=== PATIENT | male | born 1940 | race Hispanic/Latino ===

== ENCOUNTER 2019-10-29 10:30 | Outpatient (CLI) | payer MEDICARE ==
--- NOTE | 2019-10-29 12:26 | Magnetic Resonance Report ---
MRI LUMBAR SPINE WITHOUT CONTRAST INDICATION / CLINICAL INFORMATION: CHRONIC BACK PAIN GREATER THAN 3 MOS DURATION. TECHNIQUE: Multisequence, multiplanar images of the lumbar spine were obtained. COMPARISON: None available. FINDINGS: ALIGNMENT: Normal lumbar lordosis without significant scoliosis. VERTEBRAE:Normal marrow signal and vertebral body height for age. VISUALIZED SPINAL CORD: The conus terminates at the level of L1. The cauda equina is unremarkable. No central canal stenosis. [id number] ANALYSIS: L1-2: Mild disc desiccation and facet arthropathy. L2-3: Mild circumferential bulging disc and mild facet arthropathy. L3-4: Moderate to severe disc desiccation and moderate circumferential bulging disc. Mild facet arthr opathy. No central canal stenosis. Mild to moderate bilateral neural foraminal narrowing is estimated at 50%. The left side is slightly more affected. L4-5: Mild disc desiccation and posterior bulging disc. Mild to moderate facet arthropathy. No centra l canal narrowing. Right neural foraminal narrowing is estimated at 50%. L5-S1: Mild disc desiccation and facet arthropathy. PARASPINAL SOFT TISSUES: No significant abnormality. ADDITIONAL FINDINGS: None. IMPRESSION: Mild to moderate multilevel degenerative disc disease and facet arthropathy. L3-4 appears to be the most affected level. No evidence for acute fracture, malalignment, central canal stenosis or bone lesion. Mild to moderate neural foraminal narrowing as described. Signer Name: Ghulam Joshi Jr, MD Signed: 10/29/2019 12:21 PM Workstation Name: [id number]
== END 2019-10-29 10:31 | disposition home or self-care (01) ==
LOC: MRI 10:30
PROVIDERS: ATTEND Internal Medicine
DX: M47.816 Spondylosis without myelopathy or radiculopathy, lumbar region (principal); M48.062 Spinal stenosis, lumbar region with neurogenic claudication; M51.26 Other intervertebral disc displacement, lumbar region
CPT/HCPCS: 72148

== ENCOUNTER 2021-12-23 08:29 | Emergency (ER) | payer MEDICARE, BC ==
[2021-12-23] MEDS ORDERED: TETANUS,DIPH,PERTUSS(ACELL) VACCINE 0.5 ML SYRINGE IM ONE (08:35)
[2021-12-23] MEDS ORDERED: LIDOCAINE (1%) 10 MG/1 ML VIAL 20 ML MDV INFILTRATI ONE (08:35)
[2021-12-23] MEDS ORDERED: ACETAMINOPHEN 325 MG TAB PO ONE (08:35)
--- NOTE | 2021-12-23 08:36 | Emergency Department Report ---
ED Laceration HPI - HPI Stated Complaint: LT HAND INJURY Time Seen by Provider: 12/23/21 08:34 Occurred When: Yesterday Location: Upper Extremity Severity: moderate Tetanus Status: Not up to Date Laceration Symptoms: Yes Pain, No Foreign Body Sensation, No Numbness, No Weakness Other History: 81 yo comes to ER sp fall yesterday. He was at the [employer] and tripped on a root and fell. cutting his left hand. denies other trauma. no witness; but sound mechanical in nature. no prodrome of symptoms- no cp. no sob. 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 ED Review of Systems ROS: Stated complaint: LT HAND INJURY Other details as noted in HPI Comment: All other systems reviewed and negative ED Past Medical Hx - Past Medical History Previous Medical History?: Yes Hx Hypertension: Yes Hx Heart Attack/AMI: Yes Hx Deep Vein Thrombosis: Yes Hx GERD: Yes Hx Arthritis: Yes Additional medical history: High cholesterol - Surgical History Past Surgical History?: Yes Hx Open Heart Surgery: Yes Hx Appendectomy: Yes Additional Surgical History: Quadtriple bypass, Hernia repair - Family History Family history: no significant - Social History Smoking Status: Former Smoker Substance Use Type: None - Medications Home Medications: Home Medications Medication Instructions Recorded Confirmed Last Taken Type Arginine HCl [l-Arginine] 1,000 mg PO TID 10/15/13 10/15/13 10/14/13 22:00 History Ascorbic Acid [Vitamin C] 1 tab PO DAILY 10/15/13 10/15/13 10/14/13 09:00 History Celecoxib [celeBREX] 200 mg PO DAILY 10/15/13 10/15/13 10/14/13 09:00 History Escitalopram Oxalate [Lexapro] 20 mg PO DAILY 10/15/13 10/15/13 10/14/13 22:00 History Gabapentin 400 mg PO TID 10/15/13 10/15/13 10/14/13 22:00 History Omeprazole [PriLOSEC] 20 mg PO DAILY 10/15/13 10/15/13 10/14/13 09:00 History Simvastatin (NF) [Zocor TAB] 40 mg PO QHS 10/15/13 10/15/13 10/14/13 22:00 History Triamter/Hctz 37.5-25 mg 37.5 mg PO DAILY 10/15/13 10/15/13 10/14/13 09:00 Hi story [Maxzide-25] Vitamin E 1 cap PO DAILY 10/15/13 10/15/13 10/14/13 09:00 History traZODone [Desyrel] 50 - 100 mg PO QHS 10/15/13 10/15/13 10/14/13 22:00 History Aspirin 325 mg PO QDAY #30 tablet 10/16/13 Unknown Rx carvediloL [Coreg] 6.25 mg PO BID #60 tablet 10/16/13 Unknown Rx lisinopriL [Zestril TAB] 20 mg PO QDAY #30 tablet 10/16/13 Unknown Rx cephALEXin [Keflex] 500 mg PO Q12HR #20 cap 12/23/21 Unknown Rx Laceration Physical Exam - Exam General: Vital signs noted. No distress. Alert and acting appropriately. Laceration Location: Upper Extremity Laceration Exam: Yes Normal Distal CMS, No Foreign Body, No Exposed Tendon, Vessel, or Nerve, No Tendon Injury - Laceration /Wound Repair l hand Wound Location: upper extremity Wound Length (cm): 6 (v shaped; as in skin tear) Wound's Depth, Shape: superficial, flap, contused tissue Wound Explored: clean Irrigated w/ Saline (ccs): 100 Betadine Prep?: Yes Anesthesia: 1% Lidocaine Volume Anesthetic (ccs): 1 Wound Debrided: minimal Wound Repaired With: sutures, Steri-strips, Dermabond Suture Size/Type: 3:0, proline Number of Sutures: 4 Layer Closure?: No Sterile Dressing Applied?: Yes Progress: wound cleaned wound dressed sutures to approximate edges and then dermabond and streristrips overlying ED Medical Decision Making - Radiology Data Radiology results: report reviewed, image reviewed - Medical Decision Making Vital Signs 12/23/21 08:35 Temperature 97.7 F Pulse Rate 58 L Respiratory 16 Rate Blood Pressure 169/65 [Left] O2 Sat by Pulse 100 Oximetry wound repaired dc home with dc plan of care including keflex/wound care and follow up in 7 days. He verbalizes understanding. - Differential Diagnosis lac; ro open fx Critical care attestation.: If time is entered above; I have spent that time in minutes in the direct care of this critically ill patient, excluding procedure time. ED Disposition Clinical Impression: Laceration Fall Qualifiers: Encounter type: initial encounter Qualified Code(s): W19.XXXA - Unspecified fall, initial encounter Disposition: HOME / SELF CARE / HOMELESS Is pt being admited?: No Does the pt Need Aspirin: No Condition: Stable Instructions: Laceration Care, Adult Additional Instructions: keep wound clean and dry keep wound covered to keep it clean motrin or tylenol for pain ice the wound today to help with swelling and pain follow up with pcp early next week to be sure this is healing. Prescriptions: cephALEXin [Keflex] 500 mg PO Q12HR #20 cap Referrals: YESENIA KING MD [Staff Physician] - 3-5 Days Time of Disposition: 08:45
[2021-12-23 08:38] VITALS: BP 169/65
[2021-12-23] MEDS ORDERED: SODIUM CHLORIDE 0.9% IRR 500 ML BOTTLE IR NR (09:00)
--- NOTE | 2021-12-23 09:06 | XRay Report ---
Left hand-2 views INDICATION: pain sp fall. COMPARISON: None available. IMPRESSION: No acute osseous abnormality. Normal alignment. No significant DJD. Mild soft tissue i rregularity along the dorsum of the hand at the mid metacarpal level may represent a small laceration . There are also a couple tiny foreign bodies over the volar aspect of the distal phalanx of the ring finger measuring a couple millimeters in maximal size. Signer Name: Rojelio Luevano MD Signed: 12/23/2021 9:02 AM Workstation Name: [id number]
== END 2021-12-23 09:30 | disposition home or self-care (01) ==
LOC: ED 08:29
DX: S61.412A Laceration without foreign body of left hand, initial encounter (principal); K21.9 Gastro-esophageal reflux disease without esophagitis; M19.90 Unspecified osteoarthritis, unspecified site; I10 Essential (primary) hypertension; I25.2 Old myocardial infarction; I21.9 Acute myocardial infarction, unspecified; Z86.718 Personal history of other venous thrombosis and embolism; Z98.890 Other specified postprocedural states; Z87.891 Personal history of nicotine dependence; W22.8XXA Striking against or struck by other objects, initial encounter; Y93.89 Activity, other specified; Y92.89 Other specified places as the place of occurrence of the external cause; Y99.8 Other external cause status
CPT/HCPCS: 12002; 73120; 90471; 90715; 99283; J3490

== ENCOUNTER 2022-03-17 15:42 | Emergency (ER) | payer MEDICARE, BC ==
[2022-03-17] MEDS ORDERED: cephALEXin 500 MG CAP PO ONE (16:54)
[2022-03-17] MEDS ORDERED: SODIUM CHLORIDE 0.9% 1000 ML 1,000 ML IV ONE (16:54)
[2022-03-17] MEDS ORDERED: IBUPROFEN 600 MG TAB PO ONE (16:54)
--- NOTE | 2022-03-17 16:56 | Emergency Department Report ---
ED Animal Bite HPI - General Chief Complaint: Animal Bite Stated Complaint: DOG BITE Time Seen by Provider: 03/17/22 16:54 Source: patient Mode of arrival: Ambulatory Limitations: No Limitations - History of Present Illness Initial Comments: Patient is an 81-year-old male that comes to the emergency room after being bit by dog. 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 The dog is up-to-date on her shots. Patient is up-to-date on his tetanus. Patient is neurovascularly intact and bleeding is controlled on arrival. The bite is to his left forearm and hand. MD Complaint: animal bite -: Sudden, hour(s) Location: other Animal: dog Animal Control Notified: No Description: household pet Mechanism: bite Context: other Associated Symptoms: none Treatments Prior to Arrival: wound dressing(s) (He was feeding animals) - Related Data Patient Tetanus UTD: Yes Home Medications Medication Instructions Recorded Confirmed Last Taken Arginine HCl [l-Arginine] 1,000 mg PO TID 10/15/13 10/15/13 10/14/13 22:00 Ascorbic Acid [Vitamin C] 1 tab PO DAILY 10/15/13 10/15/13 10/14/13 09:00 Celecoxib [celeBREX] 200 mg PO DAILY 10/15/13 10/15/13 10/14/13 09:00 Escitalopram Oxalate [Lexapro] 20 mg PO DAILY 10/15/13 10/15/13 10/14/13 22:00 Gabapentin 400 mg PO TID 10/15/13 10/15/13 10/14/13 22:00 Omeprazole [PriLOSEC] 20 mg PO DAILY 10/15/13 10/15/13 10/14/13 09:00 Simvastatin (NF) [Zocor TAB] 40 mg PO QHS 10/15/13 10/15/13 10/14/13 22:00 Triamter/Hctz 37.5-25 mg 37.5 mg PO DAILY 10/15/13 10/15/13 10/14/13 09:00 [Maxzide-25] Vitamin E 1 cap PO DAILY 10/15/13 10/15/13 10/14/13 09:00 traZODone [Desyrel] 50 - 100 mg PO QHS 10/15/13 10/15/1310/14/13 22:00 Previous Rx's Medication Instructions Recorded Last Taken Type Aspirin 325 mg PO QDAY #30 tablet 10/16/13 Unknown Rx carvediloL [Coreg] 6.25 mg PO BID #60 tablet 10/16/13 Unknown Rx lisinopriL [Zestril TAB] 20 mg PO QDAY #30 tablet 10/16/13 Unknown Rx cephALEXin [Keflex] 500 mg PO Q12HR #20 cap 12/23/21 Unknown Rx Amoxicillin/K Clav Tab [Augmentin 1 tab PO Q12HR #20 tab 03/17/22 Unknown Rx 875 mg] Allergies Allergy/AdvReac Type Severity Reaction Status Date / Time No Known Allergies Allergy Verified 10/15/13 02:54 ED Review of Systems ROS: Stated complaint: DOG BITE Other details as noted in HPI Comment: All other systems reviewed and negative ED Past Medical Hx - Past Medical History Previous Medical History?: Yes Hx Hypertension: Yes Hx Heart Attack/AMI: Yes Hx Deep Vein Thrombosis: Yes Hx GERD: Yes Hx Arthritis: Yes Additional medical history: High cholesterol - Surgical History Past Surgical History?: Yes Hx Open Heart Surgery: Yes Hx Appendectomy: Yes Additional Surgical History: Quadtriple bypass, Hernia repair - Family History Family history: no significant - Social History Smoking Status: Former Smoker Substance Use Type: None - Medications Home Medications: Home Medications Medication Instructions Recorded Confirmed Last Taken Type Arginine HCl [l-Arginine] 1,000 mg PO TID 10/15/13 10/15/13 10/14/13 22:00 History Ascorbic Acid [Vitamin C] 1 tab PO DAILY 10/15/13 10/15/13 10/14/13 09:00 History Celecoxib [celeBREX] 200 mg PO DAILY 10/15/13 10/15/13 10/14/13 09:00 History Escitalopram Oxalate [Lexapro] 20 mg PO DAILY 10/15/13 10/15/13 10/14/13 22:00 History Gabapentin 400 mg PO TID 10/15/13 10/15/13 10/14/13 22:00 History Omeprazole [PriLOSEC] 20 mg PO DAILY 10/15/13 10/15/13 10/14/13 09:00 History Simvastatin (NF) [Zocor TAB] 40 mg PO QHS 10/15/13 10/15/1313 22:00 History Triamter/Hctz 37.5-25 mg 37.5 mg PO DAILY 10/15/13 10/15/13 10/14/13 09:00 History [Maxzide-25] Vitamin E 1 cap PO DAILY 10/15/13 10/15/13 10/14/13 09:00 History traZODone [Desyrel] 50 - 100 mg PO QHS 10/15/13 10/15/13 10/14/13 22:00 History Aspirin 325 mg PO QDAY #30 tablet 10/16/13 Unknown Rx carvediloL [Coreg] 6.25 mg PO BID #60 tablet 10/16/13 Unknown Rx lisinopriL [Zestril TAB] 20 mg PO QDAY #30 tablet 10/16/13 Unknown Rx cephALEXin [Keflex] 500 mg PO Q12HR #20 cap 12/23/21 Unknown Rx Amoxicillin/K Clav Tab [Augmentin 1 tab PO Q12HR #20 tab 03/17/22 Unknown Rx 875 mg] ED Physical Exam - General Limitations: No Limitations General appearance: alert, in no apparent distress - Head Head exam: Present: atraumatic, normocephalic - Eye Eye exam: Present: normal appearance - ENT ENT exam: Present: mucous membranes moist - Neck Neck exam: Present: normal inspection - Respiratory Respiratory exam: Present: normal lung sounds bilaterally. Absent: respiratory distress - Cardiovascular Cardiovascular Exam: Present: regular rate, normal rhythm. Absent: systolic murmur, diastolic murmur, rubs, gallop - GI/Abdominal GI/Abdominal exam: Present: soft, normal bowel sounds - Rectal Rectal exam: Present: deferred - Extremities Exam Extremities exam: Present: normal inspection - Back Exam Back exam: Present: normal inspection - Neurological Exam Neurological exam: Present: alert, oriented X3 - Psychiatric Psychiatric exam: Present: normal affect, normal mood - Skin Skin exam: Present: warm, dry, normal color, other (Puncture wounds to the left forearm). Absent: rash ED Course Vital Signs 03/17/22 16:09 Temperature 98.4 F Pulse Rate 65 Respiratory 18 Rate Blood Pressure 158/59 O2 Sat by Pulse 96 Oximetry Patient has various puncture caruso on his right forearm and hand. He got between his 2 dogs which are up-to-date on shots. Wound care has been provided. Have medicated him for pain. His family and himself verbalized understanding of the plan of care. Patient being discharged home with Augmentin for infection. He is to follow-up with primary care next week to make sure this is healing. Patient has full range of motion of his elbow, wrist and fingers. He is neurovascularly intact and bleeding is controlled. Patient has been instructed on wound care. X-ray has been ordered Patient being discharged home with discharge plan of care including diet, activity, medications and follow-up. He verbalizes understanding of plan of care. - Reevaluation(s) Reevaluation #1: 03/17/22 17:07 Tdap is up-to-date Wound care provided Patient medicated with Keflex and for pain He is neurovascularly intact. His dog is up-to-date on immunizations Patient being discharged home with discharge plan of care including diet, activity, medications and follow-up. He verbalizes understanding of plan of care Vital Signs 03/17/22 16:09 Temperature 98.4 F Pulse Rate 65 Respiratory 18 Rate Blood Pressure 158/59 O2 Sat by Pulse 96 Oximetry Critical care attestation.: If time is entered above; I have spent that time in minutes in the direct care of this critically ill patient, excluding procedure time. ED Disposition Clinical Impression: Puncture wound Dog bite Qualifiers: Encounter type: initial encounter Qualified Code(s): W54.0XXA - Bitten by dog, initial encounter Disposition: HOME / SELF CARE / HOMELESS Is pt being admited?: No Does the pt Need Aspirin: No Condition: Stable Instructions: Animal Bite, Adult, [id number] Additional Instructions: Keep wound clean and dry. At least twice a day you should take the bandage down pat it with soap and water, dry it and applied nonadhesive dressing. [id number] Motrin or Tylenol can be used for pain Antibiotic as ordered today Follow-up with primary care next week to make sure this is healing Prescriptions: Amoxicillin/K Clav Tab [Augmentin 875 mg] 1 tab PO Q12HR #20 tab Referrals: YESENIA KING MD [Staff Physician] - 3-5 Days Time of Disposition: 17:07
[2022-03-17] MEDS ORDERED: HYDROcodone/ACETAMINOPHEN 5-325 MG TAB PO SCH (17:00)
[2022-03-17] MEDS ORDERED: SODIUM CHLORIDE 0.9% 1000 ML 1,000 ML ONE ×2 (17:04→17:14)
--- NOTE | 2022-03-17 18:07 | XRay Report ---
LEFT FOREARM 2 VIEWS INDICATION / CLINICAL INFORMATION: pain sp dog bite. COMPARISON: None available. FINDINGS: BONES / JOINT(S): No acute fracture or subluxation. No significant arthritis. SOFT TISSUES: Small metallic foreign bodies overlie the soft tissues of the distal phalanx of the thi rd digit. ADDITIONAL FINDINGS: None. Signer Name: Stevan Centeno MD Signed: 03/17/2022 6:03 PM Workstation Name: [id number]
[2022-03-17 18:45] VITALS: BP 147/98
== END 2022-03-17 18:34 | disposition home or self-care (01) ==
LOC: ED 15:42
DX: S51.832A Puncture wound without foreign body of left forearm, initial encounter (principal); I11.9 Hypertensive heart disease without heart failure; K21.9 Gastro-esophageal reflux disease without esophagitis; M19.90 Unspecified osteoarthritis, unspecified site; I82.409 Acute embolism and thrombosis of unspecified deep veins of unspecified lower extremity; E78.00 Pure hypercholesterolemia, unspecified; Z98.890 Other specified postprocedural states; Z87.891 Personal history of nicotine dependence; W54.0XXA Bitten by dog, initial encounter; Y93.89 Activity, other specified; Y92.89 Other specified places as the place of occurrence of the external cause; Y99.8 Other external cause status
CPT/HCPCS: 73090; 96360; 99283; J7030

== ENCOUNTER 2022-05-12 12:53 | Inpatient (IN) | payer MEDICARE ==
--- NOTE | 2022-05-12 13:30 | Emergency Department Report ---
ED Shortness of Breath HPI - General Chief Complaint: Dyspnea/Respdistress Stated Complaint: RIZWAN Time Seen by Provider: 05/12/22 13:25 Source: patient, EMS Mode of arrival: Stretcher Limitations: No Limitations - History of Present Illness Initial Comments: Patient is an 81-year-old male brought in by EMS from home for evaluation of acute onset shortness of breath approximately an hour ago. He was recently admitted to the hospital 2 weeks ago for COVID pneumonia. EMS arrived to find patient in severe respiratory distress breathing roughly 40 times a minute. He denies any chest pain, fever or chills. History of CAD with remote CABG. - Related Data Home Medications Medication Instructions Recorded Confirmed Last Taken Arginine HCl [l-Arginine] 1,000 mg PO TID 10/15/13 10/15/13 10/14/13 22:00 Ascorbic Acid [Vitamin C] 1 tab PO DAILY 10/15/13 10/15/13 10/14/13 09:00 Celecoxib [celeBREX] 200 mg PO DAILY 10/15/13 10/15/13 10/14/13 09:00 Escitalopram Oxalate [Lexapro] 20 mg PO DAILY 10/15/13 10/15/13 10/14/13 22:00 Gabapentin 400 mg PO TID 10/15/13 10/15/13 10/14/13 22:00 Omeprazole [PriLOSEC] 20 mg PO DAILY 10/15/13 10/15/13 10/14/13 09:00 Simvastatin (NF) [Zocor TAB] 40 mg PO QHS 10/15/13 10/15/13 10/14/13 22:00 Triamter/Hctz 37.5-25 mg 37.5 mg PO DAILY 10/15/13 10/15/13 10/14/13 09:00 [Maxzide-25] Vitamin E 1 cap PO DAILY 10/15/13 10/15/13 10/14/13 09:00 traZODone [Desyrel] 50 - 100 mg PO QHS 10/15/13 10/15/13 10/14/13 22:00 Previous Rx's Medication Instructions Recorded Last Taken Type Aspirin 325 mg PO QDAY #30 tablet 10/16/13 Unknown Rx carvediloL [Coreg] 6.25 mg PO BID #60 tablet 12/24/13 Unknown Rx lisinopriL [Zestril TAB] 20 mg PO QDAY #30 tablet 10/16/13 Unknown Rx cephALEXin [Keflex] 500 mg PO Q12HR #20 cap 12/23/21 Unknown Rx Amoxicillin/K Clav Tab [Augmentin 1 tab PO Q12HR #20 tab 03/17/22 Unknown Rx 875 mg] Allergies Allergy/AdvReac Type Severity Reaction Status Date / Time No Known Allergies Allergy Verified 05/12/22 12:59 ED Review of Systems ROS: Stated complaint: RIZWAN Other details as noted in HPI Constitutional: denies: chills, fever Respiratory: shortness of breath. denies: cough Cardiovascular: denies: chest pain, palpitations Gastrointestinal: denies: abdominal pain, nausea, diarrhea Musculoskeletal: denies: back pain, joint swelling, arthralgia Skin: denies: rash, lesions Neurological: denies: headache, weakness, paresthesias ED Past Medical Hx - Past Medical History Hx Hypertension: Yes Hx Heart Attack/AMI: Yes Hx Deep Vein Thrombosis: Yes Hx GERD: Yes Hx Arthritis: Yes Additional medical history: High cholesterol - Surgical History Hx Open Heart Surgery: Yes Hx Appendectomy: Yes Additional Surgical History: Quadtriple bypass, Hernia repair - Social History Smoking Status: Former Smoker Substance Use Type: None - Medications Home Medications: Home Medications Medication Instructions Recorded Confirmed Last Taken Type Arginine HCl [l-Arginine] 1,000 mg PO TID 10/15/13 10/15/13 10/14/13 22:00 History Ascorbic Acid [Vitamin C] 1 tab PO DAILY 10/15/13 10/15/13 10/14/13 09:00 History Celecoxib [celeBREX] 200 mg PO DAILY 10/15/13 10/15/13 10/14/13 09:00 History Escitalopram Oxalate [Lexapro] 20 mg PO DAILY 10/15/13 10/15/13 10/14/13 22:00 History Gabapentin 400 mg PO TID 10/15/13 10/15/13 10/14/13 22:00 History Omeprazole [PriLOSEC] 20 mg PO DAILY 10/15/13 10/15/13 10/14/13 09:00 History Simvastatin (NF) [Zocor TAB] 40 mg PO QHS 10/15/13 10/15/13 10/14/13 22:00 History Triamter/Hctz 37.5-25 mg 37.5 mg PO DAILY 10/15/13 10/15/13 10/14/13 09:00 History [Maxzide-25] Vitamin E 1 cap PO DAILY 10/15/13 10/15/13 10/14/13 09:00 History traZODone [Desyrel] 50 - 100 mg PO QHS 10/15/13 10/15/13 10/14/13 22:00 History Aspirin 325 mg PO QDAY #30 tablet 10/16/13 Unknown Rx carvediloL [Coreg] 6.25 mg PO BID #60 tablet 10/16/13 Unknown Rx lisinopriL [Zestril TAB] 20 mg PO QDAY #30 tablet 10/16/13 Unknown Rx cephALEXin [Keflex] 500 mg PO Q12HR #20 cap 12/23/21 Unknown Rx Amoxicillin/K Clav Tab [Augmentin 1 tab PO Q12HR #20 tab 03/17/22 Unknown Rx 875 mg] ED Physical Exam - General Limitations: No Limitations General appearance: alert, in distress - Head Head exam: Present: atraumatic, normocephalic - Respiratory Respiratory exam: Present: normal lung sounds bilaterally, respiratory distress, accessory muscle use, other (Tachypnea) - Cardiovascular Cardiovascular Exam: Present: regular rate, normal rhythm, normal heart sounds - GI/Abdominal GI/Abdominal exam: Present: soft. Absent: distended, tenderness - Rectal Rectal exam: Present: deferred - Extremities Exam Extremities exam: Present: normal inspection. Absent: pedal edema, joint swe lling - Neurological Exam Neurological exam: Present: alert, oriented X3 - Psychiatric Psychiatric exam: Present: normal affect, normal mood - Skin Skin exam: Present: warm, dry, intact, normal color ED Course Vital Signs 05/12/22 05/12/22 05/12/22 13:27 13:31 13:45 Temperature Pulse Rate 60 57 L Respiratory 36 H 18 Rate Blood Pressure 138/57 138/57 O2 Sat by Pulse 100 100 100 Oximetry 05/12/22 05/12/22 05/12/22 14:01 14:15 14:31 Temperature Pulse Rate 53 L 54 L 53 L Respiratory 12 15 15 Rate Blood Pressure 145/62 145/62 132/62 O2 Sat by Pulse 100 100 100 Oximetry 05/12/22 05/12/2205/12/22 14:45 15:01 15:15 Temperature Pulse Rate 54 L 54 L 53 L Respiratory 16 18 19 Rate Blood Pressure 132/62 141/64 141/64 O2 Sat by Pulse 100 100 100 Oximetry 05/12/22 05/12/22 05/12/22 15:31 15:45 15:55 Temperature 97.6 F Pulse Rate 53 L 54 L Respiratory 19 16 Rate Blood Pressure 138/58 138/58 O2 Sat by Pulse 100 100 Oximetry 05/12/22 05/12/22 05/12/22 16:01 16:15 16:31 Temperature Pulse Rate 54 L 54 L 56 L Respiratory 16 14 14 Rate Blood Pressure 142/57 142/57 141/60 O2 Sat by Pulse 100 100 100 Oximetry 05/12/22 05/12/22 05/12/22 16:45 17:01 17:15 Temperature Pulse Rate 64 66 65 Respiratory 17 31 H 31 H Rate Blood Pressure 141/60 141/60 141/60 O2 Sat by Pulse 100 100 Oximetry 05/12/22 05/12/22 17:31 17:35 Temperature Pulse Rate 65 Respiratory 34 H 28 H Rate Blood Pressure 141/60 O2 Sat by Pulse 100 97 Oximetry ED Medical Decision Making - Lab Data Result diagrams: 05/12/22 15:01 05/12/22 15:01 - Medical Decision Making Chest x-ray shows mild basilar parenchymal opacity in the left lung that could represent atelectasis or pneumonia. WBC count is normal. Patient is afebrile. D-dimer is elevated. Subsequent CTA chest negative for PE. Patient eventually placed on BiPAP due to increased difficulty breathing with apparent fatigue. Will admit to hospitalist. Critical care attestation.: If time is entered above; I have spent that time in minutes in the direct care of this critically ill patient, excluding procedure time. ED Disposition Clinical Impression: Acute respiratory distress Disposition: 09 ADMITTED INPATIENT Is pt being admited?: Yes Condition: Stable
--- NOTE | 2022-05-12 14:09 | XRay Report ---
CHEST 1 VIEW 05/12/2022 1:01 PM INDICATION / CLINICAL INFORMATION: Dyspnea. COMPARISON: 10/15/2013 FINDINGS: SUPPORT DEVICES: None. HEART / MEDIASTINUM: Changes of prior median sternotomy are noted. LUNGS / PLEURA: There are low lung volumes bilaterally. There is mild basilar parenchymal opacity on the left. There is a stable calcified granuloma in the right lung base. The upper lung zones are sindhu r. No pneumothorax. ADDITIONAL FINDINGS: No significant additional findings. IMPRESSION: 1. There is mild basilar parenchymal opacity in the left could represent atelectasis or pneumonia. Pe rsistent density in this location and the study from 2012 and is possible this represents chronic int erstitial disease or scar. Signer Name: Lei Camacho MD Signed: 05/12/2022 2:04 PM Workstation Name: [email or web address]
[2022-05-12 14:20] LABS: ABG Base Excess -1.8 mmol/L (-2.0-3.0); ABG HCO3 19.8 mmol/L (20.0-26.0); ABG Methemoglobin 0.6 % (0.0-1.5); ABG Oxygen Saturation 99.5 % (95.0-99.0); ABG PCO2 24.9 mm Hg; ABG PH 7.518 pH Units (7.350-7.450)
[2022-05-12 14:30] LABS: ABG PO2 292.6 mm Hg (80.0-90.0)
[2022-05-12 15:30] LABS: Basophils % (Auto) 0.5 % (0.0-1.8); Eosinophils % (Auto) 0.9 % (0.0-4.3); Hematocrit 34.7 % (35.5-45.6); Hemoglobin 11.5 gm/dl (11.8-15.2); Lymphocytes # (Auto) 1.1 K/mm3 (1.2-5.4); Lymphocytes % (Auto) 19.4 % (13.4-35.0); Mean Corpuscular HGB Conc 33 % (32-34); Mean Corpuscular Volume 93 fl (84-94); Monocytes # (Auto) 0.6 K/mm3 (0.0-0.8); Monocytes % (Auto) 10.2 % (0.0-7.3); Platelet Count 147 K/mm3 (140-440); Red Blood Count 3.72 M/mm3 (3.65-5.03); Red Cell Distribution Width 14.3 % (13.2-15.2)
[2022-05-12 15:52] LABS: Alanine Aminotransferase 12 units/L (7-56); Albumin 3.8 g/dL (3.9-5); BUN/Creatinine Ratio 14; Blood Urea Nitrogen 14 mg/dL (9-20); Calcium 8.4 mg/dL (8.4-10.2); Hemolysis Index 6
--- NOTE | 2022-05-12 18:17 | Cat Scan Report ---
CTA CHEST WITH CONTRAST INDICATION / CLINICAL INFORMATION: Dyspnea. TECHNIQUE: Axial CT images were obtained through the chest after injection of 80 cc of Omnipaque 350 IV contrast. 3 plane MIP and/or 3D reconstructions were produced. All CT scans at this location are p erformed using CT dose reduction for ALARA by means of automated exposure control. COMPARISON: None available. FINDINGS: PULMONARY ARTERIES: No pulmonary emboli. THORACIC AORTA: Mild atherosclerotic calcification without acute abnormality. HEART: No significant abnormality. CORONARY ARTERY CALCIFICATION: Severe. MEDIASTINUM / LOIS: No significant abnormality. PLEURA: No pleural effusion. No pneumothorax. LUNGS: No acute air space or interstitial disease. There are 2 calcified granulomas in the right lowe r lobe. There is mild atelectasis or scar in the left lung base ADDITIONAL FINDINGS: None. UPPER ABDOMEN: No acute findings. SKELETAL STRUCTURES: No acute abnormality IMPRESSION: 1. No CT evidence for pulmonary embolism. 2. No acute findings. Signer Name: Lei Camacho MD Signed: 05/12/2022 6:13 PM Workstation Name: [id number]
--- NOTE | 2022-05-12 18:38 | History and Physical Report ---
History of Present Illness Chief complaint: He is having problems breathing History of present illness: 81 YO Male with Vascular Dementia, Cerebral Atherosclerosis, GERD, HLD, HTN, ND, OA, DVT not on therapeutic anticoagulation, CAD S/P CABG, Coronavirus Infection 2 weeks ago presents to ED for evaluation. Patient has diminished cognition and is in respiratory distress and is unable to provide history. Patient history provided by EMS staff, ED staff, as well as patient's son who is at bedside during exam and interview. As per son the patient experienced shortness of breath today. EMS was notified and upon arrival the patient was found to be in distress and subsequent transported to [facility] for further care and evaluation of the aforementioned symptoms. The patient was seen and evaluated in the emergency department. All lab and imaging studies reviewed. Patient found to have a pulse oximetry of 88% on room air which is consistent with acute hypoxemic respiratory failure. Patient was found to be using accessory muscles to breathe and was unable to speak in complete sentences. Patient placed on supplemental oxygen via nasal cannula without improvement in symptoms. Patient subsequently placed on noninvasive positive pressure ventilation with improvement in symptoms. Chest x-ray revealed pneumonia. Patient admitted to IMCU and initiated on pneumonia protocol as well as coronavirus protocol. No reports of fever, chills, chest pain, palpitation, productive cough, skin rash, recent contact trauma. No prior admission for review. All medication listed at time of admission as reconciled. Advanced care planning conducted in ED. Past History Past Medical History: acute ND, arthritis, DVT, GERD, hypertension, hyperlipidemia Past Surgical History: appendectomy, CABG Social history: . denies: smoking, alcohol abuse, prescription drug abuse Family history: hypertension Medications and Allergies Allergies Allergy/AdvReac Type Severity Reaction Status Date / Time No Known Allergies Allergy Verified 05/12/22 12:59 Home Medications Medication Instructions Recorded Confirmed Last Taken Type Arginine HCl [l-Arginine] 1,000 mg PO TID 10/15/13 10/15/13 10/14/13 22:00 History Ascorbic Acid [Vitamin C] 1 tab PO DAILY 10/15/13 10/15/13 10/14/13 09:00 History Celecoxib [celeBREX] 200 mg PO DAILY 10/15/13 10/15/13 10/14/13 09:00 History Escitalopram Oxalate [Lexapro] 20 mg PO DAILY 10/15/13 10/15/1313 22:00 History Gabapentin 400 mg PO TID 10/15/13 10/15/13 10/14/13 22:00 History Omeprazole [PriLOSEC] 20 mg PO DAILY 10/15/13 10/15/13 10/14/13 09:00 History Simvastatin (NF) [Zocor TAB] 40 mg PO QHS 10/15/13 10/15/13 10/14/13 22:00 History Triamter/Hctz 37.5-25 mg 37.5 mg PO DAILY 10/15/13 10/15/13 10/14/13 09:00 History [Maxzide-25] Vitamin E 1 cap PO DAILY 10/15/13 10/15/13 10/14/13 09:00 History traZODone [Desyrel] 50 - 100 mg PO QHS 10/15/13 10/15/13 10/14/13 22:00 History Aspirin 325 mg PO QDAY #30 tablet 10/16/13 Unknown Rx carvediloL [Coreg] 6.25 mg PO BID #60 tablet 10/16/13 Unknown Rx lisinopriL [Zestril TAB] 20 mg PO QDAY #30 tablet 10/16/13 Unknown Rx cephALEXin [Keflex] 500 mg PO Q12HR #20 cap 12/23/21 Unknown Rx Amoxicillin/K Clav Tab [Augmentin 1 tab PO Q12HR #20 tab 03/17/22 Unknown Rx 875 mg] Review of Systems ROS unobtainable: due to mental status Exam - Constitutional Vitals: Temp Pulse Resp BP Pulse Ox 97.6 F 65 28 H 141/60 97 05/12/22 15:55 05/12/22 17:31 05/12/22 17:35 05/12/22 17:31 05/12/22 17:35 General appearance: Present: mild distress - EENT Eyes: Present: PERRL ENT: clear oral mucosa, hearing decreased - Neck Neck: Present: supple, normal ROM - Respiratory Respiratory effort: labored Respiratory: bilateral: diminished, rhonchi - Cardiovascular Heart Sounds: Present: S1 & S2. Absent: rub, click - Extremities Extremities: pulses symmetrical, No edema Peripheral Pulses: within normal limits - Abdominal General gastrointestinal: Present: soft, non-tender, non-distended, normal bowel sounds Male genitourinary: Present: normal - Integumentary Integumentary: Present: clear, warm, dry - Musculoskeletal Musculoskeletal: generalized weakness - Psychiatric Psychiatric: no appropriate mood/affect, no intact judgment & insight, no memory intact - Neurologic Neurologic: CNII-XII intact, no focal deficits, moves all extremities, no gait normal HEART Score - HEART Score Troponin: Troponin T < 0.010 ng/mL (0.00-0.029) 05/12/22 15:01 Results - Labs CBC & Chem 7: 05/12/22 15:01 05/12/22 15:01 Labs: Abnormal lab results 05/12/22 05/12/22 05/12/22 Range/Units 14:00 15:01 15:01 Hgb 11.5 L (11.8-15.2) gm/dl Hct 34.7 L (35.5-45.6) % [place] % (Auto) 10.2 H (0.0-7.3) % Lymph # (Auto) 1.1 L (1.2-5.4) K/mm3 D-Dimer (0-234) ng/mlDDU ABG pH 7.518 H (7.350-7.450) pH Units ABG pO2 292.6 H (80.0-90.0) mm Hg ABG HCO3 19.8 L (20.0-26.0) mmol/L ABG O2 Saturation 99.5 H (95.0-99.0) % ABG Hemoglobin 11.9 L (14.0-18.0) gm/dl Glucose 109 H (75-100) mg/dL Total Protein 5.8 L (6.3-8.2) g/dL Albumin 3.8 L (3.9-5) g/dL 05/12/22 Range/Units 15:01 Hgb (11.8-15.2) gm/dl Hct (35.5-45.6) % [place] % (Auto) (0.0-7.3) % Lymph # (Auto) (1.2-5.4) K/mm3 D-Dimer 549.41 H (0-234) ng/mlDDU ABG pH (7.350-7.450) pH Units ABG pO2 (80.0-90.0) mm Hg ABG HCO3 (20.0-26.0) mmol/L ABG O2 Saturation (95.0-99.0) % ABG Hemoglobin (14.0-18.0) gm/dl Glucose (75-100) mg/dL Total Protein (6.3-8.2) g/dL Albumin (3.9-5) g/dL Assessment and Plan - Patient Problems (1) Acute hypoxemic respiratory failure Current Visit: Yes Status: Acute Plan to address problem: Chest x-ray, supplemental oxygen, pulse oximetry, nebulizer therapy, D-dimer, CT angio chest, pulmonary toilet, IV steroid therapy, arterial blood gas. Pulmonary toilet. Noninvasive positive pressure ventilation. (2) Pneumonia Current Visit: Yes Status: Acute Plan to address problem: Pneumonia protocol: Chest x-ray, CBC, supplemental oxygen, pulse oximetry, nebulizer therapy (3) COVID-19 long hauler Current Visit: Yes Status: Acute Plan to address problem: Coronavirus protocol, vitamin C therapy, vitamin D therapy, zinc therapy, steroid therapy, prophylactic anticoagulation. (4) Vascular dementia Current Visit: Yes Status: Acute Qualifiers: Dementia behavioral disturbance: without behavioral disturbance Qualified Code(s): F01.50 - Vascular dementia without behavioral disturbance Plan to address problem: Verbal prompting, verbal redirection, benzodiazepine therapy as clinically indicated. (5) Cerebral atherosclerosis Current Visit: Yes Status: Acute Plan to address problem: Risk factor reduction, antiplatelet therapy, supportive care. (6) Hypertension Current Visit: Yes Status: Acute Qualifiers: Hypertension type: primary hypertension Qualified Code(s): I10 - Essential (primary) hypertension Plan to address problem: Monitor blood pressure every shift, continue medical management. (7) Hyperlipidemia Current Visit: Yes Status: Acute Qualifiers: Hyperlipidemia type: mixed hyperlipidemia Qualified Code(s): E78.2 - Mixed hyperlipidemia Plan to address problem: Low-cholesterol diet, supportive care. (8) GERD (gastroesophageal reflux disease) Current Visit: Yes Status: Acute Qualifiers: Esophagitis presence: without esophagitis Qualified Code(s): K21.9 - Gastro-esophageal reflux disease without esophagitis Plan to address problem: PPI therapy, supportive care. (9) Osteoarthritis Current Visit: Yes Status: Acute Plan to address problem: NSAID therapy as clinically indicated, pain control (10) DVT prophylaxis Current Visit: Yes Status: Acute Plan to address problem: SCD to bilateral lower extremities while in bed, prophylactic anticoagulation. (11) Advance care planning Current Visit: Yes Status: Acute Plan to address problem: Disease education done, care plan discussed, diagnoses discussed, prognosis discussed, patient is full code. Patient and son acknowledged understanding and agreed with care plan, +30 minutes. (12) Preventative health care Current Visit: Yes Status: Acute Plan to address problem: Patient and son counseled regarding home safety, risk factor reduction, outpatient follow-up with primary care physician for all age and risk factor appropriate screening tests. +30 minutes.
[2022-05-12] MEDS ORDERED: methylPREDNISolone Sod Succinate 125 MG/2 ML INJ IM ONE (19:42)
[2022-05-12] MEDS ORDERED: oxyCODONE /ACETAMINOPHEN 5-325MG TAB PO PRN (19:45)
[2022-05-12] MEDS ORDERED: MORPHINE 4 MG/1 ML INJ IV PRN (19:45)
[2022-05-12] MEDS ORDERED: ONDANSETRON 4 MG/2 ML INJ IV PRN (19:45)
[2022-05-12] MEDS ORDERED: ALBUTEROL 2.5 MG/3 ML NEBU IH PRN (19:45)
[2022-05-12] MEDS ORDERED: ACETAMINOPHEN 325 MG TAB PO PRN (19:45)
--- NOTE | 2022-05-12 19:45 | History and Physical Report ---
History of Present Illness History of present illness: 81 YO Male with Vascular Dementia, Cerebral Atherosclerosis, GERD, HLD, HTN, [place], OA, DVT not on therapeutic anticoagulation, CAD S/P CABG, Coronavirus Infection 2 weeks ago presents to ED for evaluation. Past History Past Surgical History: appendectomy, CABG Social history: . denies: smoking, alcohol abuse, prescription drug abuse Family history: hypertension Medications and Allergies Allergies Allergy/AdvReac Type Severity Reaction Status Date / Time No Known Allergies Allergy Verified 05/12/22 12:59 Home Medications Medication Instructions Recorded Confirmed Last Taken Type Arginine HCl [l-Arginine] 1,000 mg PO TID 10/15/13 10/15/13 10/14/13 22:00 History Ascorbic Acid [Vitamin C] 1 tab PO DAILY 10/15/13 10/15/13 10/14/13 09:00 History Celecoxib [celeBREX] 200 mg PO DAILY 10/15/13 10/15/13 10/14/13 09:00 History Escitalopram Oxalate [Lexapro] 20 mg PO DAILY 10/15/13 10/15/13 10/14/13 22:00 History Gabapentin 400 mg PO TID 10/15/13 10/15/13 10/14/13 22:00 History Omeprazole [PriLOSEC] 20 mg PO DAILY 10/15/13 10/15/13 10/14/13 09:00 History Simvastatin (NF) [Zocor TAB] 40 mg PO QHS 10/15/13 10/15/13 10/14/13 22:00 History Triamter/Hctz 37.5-25 mg 37.5 mg PO DAILY 10/15/13 10/15/13 10/14/13 09:00 History [Maxzide-25] Vitamin E 1 cap PO DAILY 10/15/13 10/15/13 10/14/13 09:00 History traZODone [Desyrel] 50 - 100 mg PO QHS 10/15/13 10/15/13 10/14/13 22:00 History Aspirin 325 mg PO QDAY #30 tablet 10/16/13 Unknown Rx carvediloL [Coreg] 6.25 mg PO BID #60 tablet 10/16/13 Unknown Rx lisinopriL [Zestril TAB] 20 mg PO QDAY #30 tablet 10/16/13 Unknown Rx cephALEXin [Keflex] 500 mg PO Q12HR #20 cap 12/23/21 Unknown Rx Amoxicillin/K Clav Tab [Augmentin 1 tab PO Q12HR #20 tab 03/17/22 Unknown Rx 875 mg] Exam - Constitutional Vitals: Temp Pulse Resp BP Pulse Ox 97.6 F 65 28 H 141/60 97 05/12/22 15:55 05/12/22 17:31 05/12/22 17:35 05/12/22 17:31 05/12/22 17:35 HEART Score - HEART Score Troponin: Troponin T < 0.010 ng/mL (0.00-0.029) 05/12/22 15:01 Results - Labs CBC & Chem 7: 05/12/22 15:01 05/12/22 15:01 Labs: Abnormal lab results 05/12/22 05/12/22 05/12/22 Range/Units 14:00 15:01 15:01 Hgb 11.5 L (11.8-15.2) gm/dl Hct 34.7 L (35.5-45.6) % [place] % (Auto) 10.2 H (0.0-7.3) % Lymph # (Auto) 1.1 L (1.2-5.4) K/mm3 D-Dimer (0-234) ng/mlDDU ABG pH 7.518 H (7.350-7.450) pH Units ABG pO2 292.6 H (80.0-90.0) mm Hg ABG HCO3 19.8 L (20.0-26.0) mmol/L ABG O2 Saturation 99.5 H (95.0-99.0) % ABG Hemoglobin 11.9 L (14.0-18.0) gm/dl Glucose 109 H (75-100) mg/dL Total Protein 5.8 L (6.3-8.2) g/dL Albumin 3.8 L (3.9-5) g/dL 05/12/22 Range/Units 15:01 Hgb (11.8-15.2) gm/dl Hct (35.5-45.6) % [place] % (Auto) (0.0-7.3) % Lymph # (Auto) (1.2-5.4) K/mm3 D-Dimer 549.41 H (0-234) ng/mlDDU ABG pH (7.350-7.450) pH Units ABG pO2 (80.0-90.0) mm Hg ABG HCO3 (20.0-26.0) mmol/L ABG O2 Saturation (95.0-99.0) % ABG Hemoglobin (14.0-18.0) gm/dl Glucose (75-100) mg/dL Total Protein (6.3-8.2) g/dL Albumin (3.9-5) g/dL
[2022-05-12] MEDS ORDERED: LORazepam 2 MG/ML VIAL IV PRN (19:52)
[2022-05-12] MEDS ORDERED: ARGININE HCL 1000 MG PO SCH (20:00)
[2022-05-12] MEDS ORDERED: SODIUM CHLORIDE 0.45% 1000 ML 1,000 ML IV SCH (20:00)
[2022-05-12] MEDS: cefTRIAXone/NS 2 GM/100 ML 2 GM/100 ML BAG IV SCH (21:53)
[2022-05-12] MEDS: PRAVASTATIN 80 MG TAB PO SCH (21:53)
[2022-05-12] MEDS: AZITHROMYCIN 250 MG TAB PO SCH (21:54)
[2022-05-12] MEDS: GABAPENTIN 400 MG CAP PO SCH (21:54)
[2022-05-12] MEDS ORDERED: NON-FORMULARY EACH (Simvastatin 40 MG Tablet) PO SCH (22:00)
[2022-05-13] MEDS: methylPREDNISolone Sod Succinate 40 MG/1 ML INJ IV SCH ×3 (00:52→16:25)
[2022-05-13] MEDS: ASCORBIC ACID 500 MG TAB PO SCH ×3 (00:52→21:37)
[2022-05-13] MEDS: ZINC SULFATE 220 MG CAP PO SCH ×3 (00:52→21:37)
[2022-05-13] MEDS: HEPARIN 5,000 UNIT/1 ML VIAL SUB-Q SCH ×3 (00:52→21:41)
[2022-05-13 05:04] LABS: Basophils % (Auto) 0.4 % (0.0-1.8); Hematocrit 38.5 % (35.5-45.6); Hemoglobin 12.9 gm/dl (11.8-15.2); Lymphocytes # (Auto) 0.5 K/mm3 (1.2-5.4); Lymphocytes % (Auto) 12.6 % (13.4-35.0); Mean Corpuscular HGB Conc 33 % (32-34); Mean Corpuscular Volume 92 fl (84-94); Monocytes # (Auto) 0.1 K/mm3 (0.0-0.8); Monocytes % (Auto) 2.5 % (0.0-7.3); Platelet Count 164 K/mm3 (140-440); Red Blood Count 4.18 M/mm3 (3.65-5.03); Red Cell Distribution Width 14.7 % (13.2-15.2)
[2022-05-13 05:21] LABS: BUN/Creatinine Ratio 14; Blood Urea Nitrogen 15 mg/dL (9-20); Hemolysis Index 9
[2022-05-13] MEDS ORDERED: DEXTROSE 50% IN WATER (25GM) 50 ML SYRINGE IV PRN (08:48)
[2022-05-13] MEDS ORDERED: NON-FORMULARY EACH (Omeprazole [Prilosec] 20 MG Capsule.Dr) PO SCH (10:00)
[2022-05-13] MEDS ORDERED: VITAMIN E 400 UNIT PO SCH (10:00)
[2022-05-13] MEDS ORDERED: ASCORBIC ACID 1000 MG PO SCH (10:00)
[2022-05-13] MEDS ORDERED: NON-FORMULARY EACH (Escitalopram Oxalate [Lexapro] 20 MG Tablet) PO SCH (10:00)
[2022-05-13] MEDS: TRIAMTER/HCTZ 37.5-25 MG TAB PO SCH (10:04)
[2022-05-13] MEDS: PANTOPRAZOLE 20 MG TAB PO SCH (10:04)
[2022-05-13] MEDS: ASPIRIN 325 MG TAB PO SCH (10:04)
[2022-05-13] MEDS: LISINOPRIL 20 MG TAB PO SCH (10:04)
[2022-05-13] MEDS: AZITHROMYCIN 250 MG TAB PO SCH (10:04)
[2022-05-13] MEDS: CELECOXIB 200 MG CAP PO SCH (10:04)
[2022-05-13] MEDS: CHOLECALCIFEROL (VIT D3) 1000 UNIT (25 mcg) TAB PO SCH (10:05)
[2022-05-13] MEDS: GABAPENTIN 400 MG CAP PO SCH ×3 (10:05→19:54)
[2022-05-13] MEDS: ESCITALOPRAM 10 MG TAB PO SCH (10:58)
--- NOTE | 2022-05-13 11:16 | Progress Note ---
<TWILA WILSON - Last Filed: 05/13/22 14:59> Assessment and Plan Assessment and plan: This is a 81-year-old male with known past medical history of vascular dementia, cerebral atherosclerosis, GERD, HLD, HTN, OA, MA, CAD s/p CABG, DVT not on therapeutic anticoagulation, and recent Coronavirus Infection 2 weeks ago admit tricia for acute hypoxic respiratory failure requiring continuous Bipap Hospital Course to Date: 05/13: Respirtaory status imporved, stable on 2L NC this am. No respiratory dis tress noted. COVID PCR came back negative, imagings reviewed possible pneumonia vs chronic interstitial disease. Continue current IV Abx and IV steroids for now, Pulmonary consulted. Hyperglycemic this am, patient on IV steroids, low SSI initiated. Patient is stable for transfer to the floor. Assessment and Plan #Acute Hypoxic Respiratory Failure #Possible LLL Pneumonia vs Chronic Interstitial Disease #Recent COVID-19 Infection - Presented in respiratory distress and hypoxia required continuous Bipap - Imagings reviewed possible pneumonia vs chronic interstitial disease, see report for detail - COVID PCR negative, CRP and procal pending - Respiratory status improved, off Bipap. Stable on 2L NC today - Continue current IV abx and IV abx for now - Pulmonary consulted - Continue O2 supplementation and wean as tolerated - Continue SPO2 monitoring for SPO2 goal above 92% #Hypertension #Hyperlipidemia - BP stable, continue medical management. - Resume home antihypertensive and statin - Continue blood pressure monitor per protocol - Maintain SBP greater than 160 #Vascular Dementia - Currently fully AAO - Continue supportive measures - Verbal prompting, verbal redirection - Avoid benzodiazepine to reduce the possibility of delirium - PRN Analgesia for pain control - Maintenance of sleep-wake cycle #GERD (Gastroesophageal Reflux Disease) - continue medical management. - PPI- Protonix #Osteoarthritis - continue medical management. - Home meds resumed #Hyperglycemia - Per patient no previous history of diabetes - Now on IV steroids - BG check and SSI initiated - While critically ill target blood glucose of 140-180 #GI/DVT Prophylaxis - PPI- Pepcid - Heparin subQ - SCD to bilateral lower extremities while in bed #Advance Care Planning - Disease education data, care plan, diagnoses, and prognosis were discussed with patient and his son at the bedside. They acknowledged understanding and agreement with care plan. Patient is full code. #Preventative Health Care - Patient and son counseled regarding home safety, risk factor reduction, outpatient follow-up with primary care physician for all age and risk factor appropriate screening tests. The high probability of a clinically significant, sudden or life threatening deterioration of the [multiple] system(s) required my full and direct attention, intervention and personal management. The aggregate critical care time was [60] minutes. This time is in addition to time spent performing reported procedures but includes the following: [x] Data Review and interpretation [x] Patient assessment and monitoring of vital signs [x] Documentation [x] Medication orders and management Disposition Plan: IMCU Total Time Spent with Patient (Minutes): 60 History Interval history: Patient seen and examined at the bedside. Fully AAO, on 2L NC, denied any pain nor any discomfort. No sighs of any respiratory distress noted. VSS Hospitalist Physical - Constitutional Vitals: Temp Pulse Resp BP Pulse Ox 97.5 F L 81 21 128/60 97 05/13/22 07:12 05/13/22 11:00 05/13/22 11:00 05/13/22 11:00 05/13/22 11:00 General appearance: Present: no acute distress - EENT Eyes: Present: PERRL, EOM intact ENT: hearing decreased, other ([place]) - Neck Neck: Present: normal ROM - Respiratory Respiratory effort: normal Respiratory: bilateral: diminished - Cardiovascular Rhythm: regular Heart Sounds: Present: S1 & S2 - Extremities Extremities: no ischemia, pulses intact, pulses symmetrical Peripheral Pulses: within normal limits - Abdominal General gastrointestinal: soft, non-distended, normal bowel sounds - Integumentary Integumentary: Present: warm, dry - Psychiatric Psychiatric: appropriate mood/affect, cooperative - Neurologic Neurologic: CNII-XII intact, moves all extremities - Allied Health Allied health notes reviewed: nursing HEART Score - HEART Score Troponin: Troponin T < 0.010 ng/mL (0.00-0.029) 05/12/22 20:17 Results - Labs CBC & Chem 7: 05/13/22 04:36 05/13/22 04:36 Labs: Laboratory Last Values WBC 4.1 K/mm3 (4.5-11.0) L 05/13/22 04:36 RBC 4.18 M/mm3 (3.65-5.03) 05/13/22 04:36 Hgb 12.9 gm/dl (11.8-15.2) 05/13/22 04:36 Hct 38.5 % (35.5-45.6) 05/13/22 04:36 MCV 92 fl (84-94) 05/13/22 04:36 MCH 31 pg (28-32) 05/13/22 04:36 MCHC 33 % (32-34) 05/13/22 04:36 RDW 14.7 % (13.2-15.2) 05/13/22 04:36 Plt Count 164 K/mm3 (140-440) 05/13/22 04:36 Lymph % (Auto) 12.6 % (13.4-35.0) L 05/13/22 04:36 [place] % (Auto) 2.5 % (0.0-7.3) 05/13/22 04:36 Eos % (Auto) 0.0 % (0.0-4.3) 05/13/22 04:36 Baso % (Auto) 0.4 % (0.0-1.8) 05/13/22 04:36 Lymph # (Auto) 0.5 K/mm3 (1.2-5.4) L 05/13/22 04:36 [place] # (Auto) 0.1 K/mm3 (0.0-0.8) 05/13/22 04:36 Eos # (Auto) 0.0 K/mm3 (0.0-0.4) 05/13/22 04:36 Baso # (Auto) 0.0 K/mm3 (0.0-0.1) 05/13/22 04:36 Seg Neutrophils % 84.5 % (40.0-70.0) H 05/13/22 04:36 Seg Neutrophils # 3.4 K/mm3 (1.8-7.7) 05/13/22 04:36 D-Dimer 549.41 ng/mlDDU (0-234) H 05/12/22 15:01 ABG pH 7.518 pH Units (7.350-7.450) H 05/12/22 14:00 ABG pCO2 24.9 mm Hg 05/12/22 14:00 ABG pO2 292.6 mm Hg (80.0-90.0) H 05/12/22 14:00 ABG HCO3 19.8 mmol/L (20.0-26.0) L 05/12/22 14:00 ABG O2 Saturation 99.5 % (95.0-99.0) H 05/12/22 14:00 ABG O2 Content 17.1 (0.0-44) 05/12/22 14:00 ABG Base Excess -1.8 mmol/L (-2.0-3.0) 05/12/22 14:00 ABG Hemoglobin 11.9 gm/dl (14.0-18.0) L 05/12/22 14:00 ABG Carboxyhemoglobin 0.8 % (0.0-5.0) 05/12/22 14:00 ABG Methemoglobin 0.6 % (0.0-1.5) 05/12/22 14:00 Oxyhemoglobin 98.1 % (95.0-99.0) 05/12/22 14:00 FiO2 100 % 05/12/22 14:00 Sodium 140 mmol/L (137-145) 05/13/22 04:36 Potassium 3.9 mmol/L (3.6-5.0) 05/13/22 04:36 Chloride 101.2 mmol/L (98-107) 05/13/22 04:36 Carbon Dioxide 22 mmol/L (22-30) 05/13/22 04:36 Anion Gap 21 mmol/L 05/13/22 04:36 BUN 15 mg/dL (9-20) 05/13/22 04:36 Creatinine 1.1 mg/dL (0.8-1.3) 05/13/22 04:36 Estimated GFR > 60 ml/min 05/13/22 04:36 BUN/Creatinine Ratio 14 % 05/13/22 04:36 Glucose 199 mg/dL (75-100) H 05/13/22 04:36 Calcium 9.0 mg/dL (8.4-10.2) 05/13/22 04:36 Total Bilirubin 0.40 mg/dL (0.1-1.2) 05/12/22 15:01 AST 14 units/L (5-40) 05/12/22 15:01 ALT 12 units/L (7-56) 05/12/22 15:01 Alkaline Phosphatase 66 units/L (35-129) 05/12/22 15:01 Troponin T < 0.010 ng/mL (0.00-0.029) 05/12/22 20:17 NT-Pro-B Natriuret Pep 227.8 pg/mL (0-900) 05/12/22 15:01 Total Protein 5.8 g/dL (6.3-8.2) L 05/12/22 15:01 Albumin 3.8 g/dL (3.9-5) L 05/12/22 15:01 Albumin/Globulin Ratio 1.9 % 05/12/22 15:01 SARS-CoV-2 (PCR) Negative (Negative) 05/13/22 09:50 Reddy/IV: Voiding Method Urinal Active Medications - Current Medications Current Medications: Generic Name Dose Route Start Last Admin Trade Name Freq PRN Reason Stop Dose Admin Acetaminophen 650 mg 05/12/22 19:45 Acetaminophen 325 Mg Tab PO Q4H PRN Pain MILD(1-3)/Fever >100.5/GOMEZ Albuterol 2.5 mg 05/12/22 19:45 Albuterol 2.5 Mg/3 Ml Nebu IH Q4HRT PRN Shortness Of Breath Ascorbic Acid 500 mg 05/12/22 22:00 05/13/22 10:05 Ascorbic Acid 500 Mg Tab PO 500 mg BID CECY Administration Aspirin 325 mg 05/13/22 10:00 05/13/22 10:04 Aspirin 325 Mg Tab PO 325 mg QDAY CECY Administration Azithromycin 500 mg 05/12/22 21:00 05/13/22 10:04 Azithromycin 250 Mg Tab PO 500 mg QDAY CECY Administration Protocol Celecoxib 200 mg 05/13/22 10:00 05/13/22 10:04 Celecoxib 200 Mg Cap PO 200 mg DAILY CECY Administration Cholecalciferol 1,000 unit 05/13/22 10:00 05/13/22 10:05 Cholecalciferol (Vit D3) 1000 Unit (25 Mcg) Tab PO 1,000 unit QDAY CECY Administration Dextrose 50 ml 05/13/22 08:48 Dextrose 50% In Water (25gm) 50 Ml Syringe IV Q30MIN PRN Hypoglycemia Protocol Escitalopram Oxalate 20 mg 05/13/22 10:00 05/13/22 10:58 Escitalopram 10 Mg Tab PO 20 mg DAILY CCEY Administration Gabapentin 400 mg 05/12/22 20:00 05/13/22 10:05 Gabapentin 400 Mg Cap PO 400 mg TID CECY Administration Heparin Sodium (Porcine) 5,000 unit 05/12/22 22:00 05/13/22 10:05 Heparin 5,000 Unit/1 Ml Vial SUB-Q 5,000 unit Q12HR CECY Administration Ceftriaxone Sodium 2 gm in 100 mls @ 200 mls/hr 05/12/22 20:00 05/12/22 21:53 Rocephin/Ns 2 Gm/100 Ml IV 200 mls/hr Q24H CECY Administration Protocol Insulin Human Lispro 0 unit 05/13/22 11:30 Insulin Lispro 100 Unit/Ml SUB-Q ACHS [facility] Protocol Lisinopril 20 mg 05/13/22 10:00 05/13/22 10:04 Lisinopril 20 Mg Tab PO 20 mg QDAY CECY Administration Lorazepam 0.5 mg 05/12/22 19:52 Lorazepam 2 Mg/Ml Vial IV Q6H PRN Agitation Methylprednisolone Sodium Succinate 40 mg 05/13/22 00:00 05/13/22 10:05 Methylprednisolone Sod Succinate 40 Mg/1 Ml Inj IV 40 mg Q8H CECY Administration Miscellaneous Medication 1,000 mg 05/12/22 20:00 Arginine Hcl [L-Arginine] PO TID [facility] Morphine Sulfate 2 mg 05/12/22 19:45 Morphine 4 Mg/1 Ml Inj IV Q12H PRN Pain , Severe (7-10) Ondansetron HCl 4 mg 05/12/22 19:45 Ondansetron 4 Mg/2 Ml Inj IV Q8H PRN Nausea And Vomiting Oxycodone/Acetaminophen 1 tab 05/12/22 19:45 Oxycodone /Acetaminophen 5-325mg Tab PO Q6H PRN Pain, Moderate (4-6) Pantoprazole Sodium 20 mg 05/13/22 10:00 05/13/22 10:04 Pantoprazole 20 Mg Tab PO 20 mg QDAY CECY Administration Pravastatin Sodium 80 mg 05/12/22 22:00 05/12/22 21:53 Pravastatin 80 Mg Tab PO 80 mg QHS CECY Administration Sodium Chloride 10 ml 05/12/22 22:00 05/13/22 10:05 Sodium Chloride 0.9% 10 Ml Flush Syringe IV 10 ml BID CECY Administration Sodium Chloride 10 ml 05/12/22 19:45 Sodium Chloride 0.9% 10 Ml Flush Syringe IV PRN PRN LINE FLUSH Triamterene/Hydrochlorothiazide 1 each 05/13/22 10:00 05/13/22 10:04 Triamter/Hctz 37.5-25 Mg Tab PO 1 each DAILY CECY Administration Vitamin E 400 unit 05/13/22 10:00 Tocopherol 200 Unit Cap PO QDAY CECY Zinc Sulfate 220 mg 05/12/22 22:00 05/13/22 10:05 Zinc Sulfate 220 Mg Cap PO 220 mg BID CECY Administration <MONTEZ WONG - Last Filed: 05/14/22 07:39> Assessment and Plan Assessment and plan: I saw and evaluated the patient. I agree with the findings and the plan of care as documented in the Nurse Practitioner's~note, with the following corrections and additions. Hospitalist Physical - Constitutional Vitals: Temp Pulse Resp BP Pulse Ox 97.5 F L 60 18 114/45 96 05/14/22 05:14 05/14/22 06:00 05/14/22 05:14 05/14/22 05:14 05/14/22 05:14 HEART Score - HEART Score Troponin: Troponin T < 0.010 ng/mL (0.00-0.029) 05/12/22 20:17 Results - Labs CBC & Chem 7: 05/14/22 05:13 05/14/22 05:13 Labs: Laboratory Last Values WBC 10.1 K/mm3 (4.5-11.0) 05/14/22 05:13 RBC 3.75 M/mm3 (3.65-5.03) 05/14/22 05:13 Hgb 11.8 gm/dl (11.8-15.2) 05/14/22 05:13 Hct 34.4 % (35.5-45.6) L 05/14/22 05:13 MCV 92 fl (84-94) 05/14/22 05:13 MCH 31 pg (28-32) 05/14/22 05:13 MCHC 34 % (32-34) 05/14/22 05:13 RDW 14.3 % (13.2-15.2) 05/14/22 05:13 Plt Count 144 K/mm3 (140-440) 05/14/22 05:13 Lymph % (Auto) 12.6 % (13.4-35.0) L 05/13/22 04:36 [place] % (Auto) 2.5 % (0.0-7.3) 05/13/22 04:36 Eos % (Auto) 0.0 % (0.0-4.3) 05/13/22 04:36 Baso % (Auto) 0.4 % (0.0-1.8) 05/13/22 04:36 Lymph # (Auto) 0.5 K/mm3 (1.2-5.4) L 05/13/22 04:36 [place] # (Auto) 0.1 K/mm3 (0.0-0.8) 05/13/22 04:36 Eos # (Auto) 0.0 K/mm3 (0.0-0.4) 05/13/22 04:36 Baso # (Auto) 0.0 K/mm3 (0.0-0.1) 05/13/22 04:36 Seg Neutrophils % 84.5 % (40.0-70.0) H 05/13/22 04:36 Seg Neutrophils # 3.4 K/mm3 (1.8-7.7) 05/13/22 04:36 D-Dimer 736.62 ng/mlDDU (0-234) H 05/14/22 05:13 ABG pH 7.518 pH Units (7.350-7.450) H 05/12/22 14:00 ABG pCO2 24.9 mm Hg 05/12/22 14:00 ABG pO2 292.6 mm Hg (80.0-90.0) H 05/12/22 14:00 ABG HCO3 19.8 mmol/L (20.0-26.0) L 05/12/22 14:00 ABG O2 Saturation 99.5 % (95.0-99.0) H 05/12/22 14:00 ABG O2 Content 17.1 (0.0-44) 05/12/22 14:00 ABG Base Excess -1.8 mmol/L (-2.0-3.0) 05/12/22 14:00 ABG Hemoglobin 11.9 gm/dl (14.0-18.0) L 05/12/22 14:00 ABG Carboxyhemoglobin 0.8 % (0.0-5.0) 05/12/22 14:00 ABG Methemoglobin 0.6 % (0.0-1.5) 05/12/22 14:00 Oxyhemoglobin 98.1 % (95.0-99.0) 05/12/22 14:00 FiO2 100 % 05/12/22 14:00 Sodium 140 mmol/L (137-145) 05/14/22 05:13 Potassium 4.4 mmol/L (3.6-5.0) 05/14/22 05:13 Chloride 103.3 mmol/L (98-107) 05/14/22 05:13 Carbon Dioxide 23 mmol/L (22-30) 05/14/22 05:13 Anion Gap 18 mmol/L 05/14/22 05:13 BUN 29 mg/dL (9-20) H 05/14/22 05:13 Creatinine 1.0 mg/dL (0.8-1.3) 05/14/22 05:13 Estimated GFR > 60 ml/min 05/14/22 05:13 BUN/Creatinine Ratio 29 % 05/14/22 05:13 Glucose 186 mg/dL (75-100) H 05/14/22 05:13 POC Glucose 238 mg/dL (70-105) H 05/13/22 21:46 Calcium 8.6 mg/dL (8.4-10.2) 05/14/22 05:13 Ferritin 46.4 ng/mL (30.0-300.0) 05/14/22 05:13 Total Bilirubin 0.40 mg/dL (0.1-1.2) 05/12/22 15:01 AST 14 units/L (5-40) 05/12/22 15:01 ALT 12 units/L (7-56) 05/12/22 15:01 Alkaline Phosphatase 66 units/L (35-129) 05/12/22 15:01 Lactate Dehydrogenase 130 units/L (91-180) 05/14/22 05:13 Troponin T < 0.010 ng/mL (0.00-0.029) 05/12/22 20:17 C-Reactive Protein < 0.30 mg/dL (0.00-1.30) 05/14/22 05:13 NT-Pro-B Natriuret Pep 227.8 pg/mL (0-900) 05/12/22 15:01 Total Protein 5.8 g/dL (6.3-8.2) L 05/12/22 15:01 Albumin 3.8 g/dL (3.9-5) L 05/12/22 15:01 Albumin/Globulin Ratio 1.9 % 05/12/22 15:01 SARS-CoV-2 (PCR) Negative (Negative) 05/13/22 09:50 Reddy/IV: Voiding Method Urinal Active Medications - Current Medications Current Medications: Generic Name Dose Route Start Last Admin Trade Name Freq PRN Reason Stop Dose Admin Acetaminophen 650 mg 05/12/22 19:45 Acetaminophen 325 Mg Tab PO Q4H PRN Pain MILD(1-3)/Fever >100.5/GOMEZ Albuterol 2.5 mg 05/12/22 19:45 Albuterol 2.5 Mg/3 Ml Nebu IH Q4HRT PRN Shortness Of Breath Ascorbic Acid 500 mg 05/12/22 22:00 05/13/22 21:37 Ascorbic Acid 500 Mg Tab PO 500 mg BID CECY Administration Aspirin 325 mg 05/13/22 10:00 05/13/22 10:04 Aspirin 325 Mg Tab PO 325 mg QDAY CECY Administration Azithromycin 500 mg 05/12/22 21:00 05/13/22 10:04 Azithromycin 250 Mg Tab PO 500 mg QDAY CECY Administration Protocol Celecoxib 200 mg 05/13/22 10:00 05/13/22 10:04 Celecoxib 200 Mg Cap PO 200 mg DAILY CECY Administration Cholecalciferol 1,000 unit 05/13/22 10:00 05/13/22 10:05 Cholecalciferol (Vit D3) 1000 Unit (25 Mcg) Tab PO 1,000 unit QDAY CECY Administration Dextrose 50 ml 05/13/22 08:48 Dextrose 50% In Water (25gm) 50 Ml Syringe IV Q30MIN PRN Hypoglycemia Protocol Escitalopram Oxalate 20 mg 05/13/22 10:00 05/13/22 10:58 Escitalopram 10 Mg Tab PO 20 mg DAILY CECY Administration Gabapentin 400 mg 05/12/22 20:00 05/13/22 19:54 Gabapentin 400 Mg Cap PO 400 mg TID CECY Administration Heparin Sodium (Porcine) 5,000 unit 05/12/22 22:00 05/13/22 21:41 Heparin 5,000 Unit/1 Ml Vial SUB-Q 5,000 unit Q12HR CECY Administration Ceftriaxone Sodium 2 gm in 100 mls @ 200 mls/hr 05/12/22 20:00 05/13/22 19:54 Rocephin/Ns 2 Gm/100 Ml IV 200 mls/hr Q24H CECY Administration Protocol Insulin Glargine 20 units 05/13/22 22:00 05/13/22 22:00 Insulin Glargine 100 Units/Ml SUB-Q 20 units QHS CECY Administration Insulin Human Lispro 0 unit 05/13/22 11:30 05/13/22 22:00 Insulin Lispro 100 Unit/Ml SUB-Q 4 unit ACHS CECY Administration Protocol Lisinopril 20 mg 05/13/22 10:00 05/13/22 10:04 Lisinopril 20 Mg Tab PO 20 mg QDAY CECY Administration Methylprednisolone Sodium Succinate 40 mg 05/13/22 00:00 05/14/22 00:41 Methylprednisolone Sod Succinate 40 Mg/1 Ml Inj IV 40 mg Q8H CECY Administration Miscellaneous Medication 1,000 mg 05/12/22 20:00 Arginine Hcl [L-Arginine] PO TID CECY Ondansetron HCl 4 mg 05/12/22 19:45 Ondansetron 4 Mg/2 Ml Inj IV Q8H PRN Nausea And Vomiting Oxycodone/Acetaminophen 1 tab 05/12/22 19:45 05/13/22 21:52 Oxycodone /Acetaminophen 5-325mg Tab PO 1 tab Q6H PRN Administration Pain, Moderate (4-6) Pantoprazole Sodium 20 mg 05/13/22 10:00 05/13/22 10:04 Pantoprazole 20 Mg Tab PO 20 mg QDAY CECY Administration Pravastatin Sodium 80 mg 05/12/22 22:00 05/13/22 21:40 Pravastatin 80 Mg Tab PO 80 mg QHS CECY Administration Sodium Chloride 10 ml 05/12/22 22:00 05/13/22 22:46 Sodium Chloride 0.9% 10 Ml Flush Syringe IV 10 ml BID CECY Administration Sodium Chloride 10 ml 05/12/22 19:45 Sodium Chloride 0.9% 10 Ml Flush Syringe IV PRN PRN LINE FLUSH Triamterene/Hydrochlorothiazide 1 each 05/13/22 10:00 05/13/22 10:04 Triamter/Hctz 37.5-25 Mg Tab PO 1 each DAILY CECY Administration Vitamin E 400 unit 05/13/22 10:00 05/13/22 11:32 Tocopherol 200 Unit Cap PO 400 unit QDAY CECY Administration Zinc Sulfate 220 mg 05/12/22 22:00 05/13/22 21:37 Zinc Sulfate 220 Mg Cap PO 220 mg BID CECY Administration
[2022-05-13] MEDS: TOCOPHEROL 200 UNIT CAP PO SCH (11:32)
[2022-05-13] MEDS: INSULIN LISPRO 100 UNIT/ML SUB-Q SCH ×3 (11:41→22:00)
[2022-05-13] MEDS: cefTRIAXone/NS 2 GM/100 ML 2 GM/100 ML BAG IV SCH (19:54)
[2022-05-13] MEDS: PRAVASTATIN 80 MG TAB PO SCH (21:40)
[2022-05-13] MEDS ORDERED: INSULIN GLARGINE 100 UNITS/ML SUB-Q SCH (22:00)
--- NOTE | 2022-05-14 00:22 | Consultation ---
History of Present Illness Consult date: 05/13/22 Requesting physician: JUDAH COATES Reason for consult: dyspnea History of present illness: 81 yo WM s/p recent Covid-19 infection presented with acute onset dyspnea, without wheezing, fevers, chills, chest pain, cough, sputum, hemoptysis. Stabilized on BIPAP initially, now back on RA with resolution of SOB and no othe r symptoms. Patient expresses desire to go home. Past History Past Medical History: acute IA, arthritis, DVT, GERD, hypertension, hyperlipidemia Past Surgical History: appendectomy, CABG Social history: . denies: smoking, alcohol abuse, prescription drug abuse Family history: hypertension Medications and Allergies Allergies Allergy/AdvReac Type Severity Reaction Status Date / Time No Known Allergies Allergy Verified 05/12/22 12:59 Home Medications Medication Instructions Recorded Confirmed Last Taken Type Arginine HCl [l-Arginine] 1,000 mg PO TID 10/15/13 10/15/13 10/14/13 22:00 H istory Ascorbic Acid [Vitamin C] 1 tab PO DAILY 10/15/13 10/15/13 10/14/13 09:00 History Celecoxib [celeBREX] 200 mg PO DAILY 10/15/13 10/15/13 10/14/13 09:00 History Escitalopram Oxalate [Lexapro] 20 mg PO DAILY 10/15/13 10/15/13 10/14/13 22:00 History Gabapentin 400 mg PO TID 10/15/13 10/15/13 10/14/13 22:00 History Omeprazole [PriLOSEC] 20 mg PO DAILY 10/15/13 10/15/13 10/14/13 09:00 History Simvastatin (NF) [Zocor TAB] 40 mg PO QHS 10/15/13 10/15/13 10/14/13 22:00 History Triamter/Hctz 37.5-25 mg 37.5 mg PO DAILY 10/15/13 10/15/13 10/14/13 09:00 History [Maxzide-25] Vitamin E 1 cap PO DAILY 10/15/13 10/15/13 10/14/13 09:00 History traZODone [Desyrel] 50 - 100 mg PO QHS 10/15/13 10/15/13 10/14/13 22:00 History Aspirin 325 mg PO QDAY #30 tablet 10/16/13 Unknown Rx carvediloL [Coreg] 6.25 mg PO BID #60 tablet 10/16/13 Unknown Rx lisinopriL [Zestril TAB] 20 mg PO QDAY #30 tablet 10/16/13 Unknown Rx Amoxicillin/K Clav Tab [Augmentin 1 tab PO Q12HR #20 tab 05/14/22 Unknown Rx 875MG TAB] Zinc Sulfate 220 mg PO BID #60 capsule 05/14/22 Unknown Rx metFORMIN [Glucophage] 500 mg PO BID #60 tab 05/14/22 Unknown Rx predniSONE [Deltasone] 20 mg PO QDAY #5 tab 05/14/22 Unknown Rx Active Meds: Active Medications Acetaminophen (Acetaminophen 325 Mg Tab) 650 mg PO Q4H PRN PRN Reason: Pain MILD(1-3)/Fever >100.5/GOMEZ Albuterol (Albuterol 2.5 Mg/3 Ml Nebu) 2.5 mg IH Q4HRT PRN PRN Reason: Shortness Of Breath Ascorbic Acid (Ascorbic Acid 500 Mg Tab) 500 mg PO BID [facility] Last Admin: 05/13/22 21:37 Dose: 500 mg Aspirin (Aspirin 325 Mg Tab) 325 mg PO QDAY [facility] Last Admin: 05/13/22 10:04 Dose: 325 mg Azithromycin (Azithromycin 250 Mg Tab) 500 mg PO QDAY [facility]; Protocol Last Admin: 05/13/22 10:04 Dose: 500 mg Celecoxib (Celecoxib 200 Mg Cap) 200 mg PO DAILY [facility] Last Admin: 05/13/22 10:04 Dose: 200 mg Cholecalciferol (Cholecalciferol (Vit D3) 1000 Unit (25 Mcg) Tab) 1,000 unit PO QDAY [facility] Last Admin: 05/13/22 10:05 Dose: 1,000 unit Dextrose (Dextrose 50% In Water (25gm) 50 Ml Syringe) 50 ml IV Q30MIN PRN; Protocol PRN Reason: Hypoglycemia Escitalopram Oxalate (Escitalopram 10 Mg Tab) 20 mg PO DAILY [facility] Last Admin: 05/13/22 10:58 Dose: 20 mg Gabapentin (Gabapentin 400 Mg Cap) 400 mg PO TID [facility] Last Admin: 05/13/22 19:54 Dose: 400 mg Heparin Sodium (Porcine) (Heparin 5,000 Unit/1 Ml Vial) 5,000 unit SUB-Q Q12HR [facility] Last Admin: 05/13/22 21:41 Dose: 5,000 unit Ceftriaxone Sodium (Rocephin/Ns 2 Gm/100 Ml) 2 gm in 100 mls @ 200 mls/hr IV Q24H [facility]; Protocol Last Admin: 05/13/22 19:54 Dose: 200 mls/hr Insulin Glargine (Insulin Glargine 100 Units/Ml) 20 units SUB-Q QHS [facility] Insulin Human Lispro (Insulin Lispro 100 Unit/Ml) 0 unit SUB-Q ACHS [facility]; Protocol Last Admin: 05/13/22 22:00 Dose: 4 unit Lisinopril (Lisinopril 20 Mg Tab) 20 mg PO QDAY [facility] Last Admin: 05/13/22 10:04 Dose: 20 mg Lorazepam (Lorazepam 2 Mg/Ml Vial) 0.5 mg IV Q6H PRN PRN Reason: Agitation Methylprednisolone Sodium Succinate (Methylprednisolone Sod Succinate 40 Mg/1 Ml Inj) 40 mg IV Q8H [facility] Last Admin: 05/13/22 16:25 Dose: 40 mg Miscellaneous Medication (Arginine Hcl [L-Arginine]) 1,000 mg PO TID [facility] Morphine Sulfate (Morphine 4 Mg/1 Ml Inj) 2 mg IV Q12H PRN PRN Reason: Pain , Severe (7-10) Ondansetron HCl (Ondansetron 4 Mg/2 Ml Inj) 4 mg IV Q8H PRN PRN Reason: Nausea And Vomiting Oxycodone/Acetaminophen (Oxycodone /Acetaminophen 5-325mg Tab) 1 tab PO Q6H PRN PRN Reason: Pain, Moderate (4-6) Last Admin: 05/13/22 21:52 Dose: 1 tab Pantoprazole Sodium (Pantoprazole 20 Mg Tab) 20 mg PO QDAY [facility] Last Admin: 05/13/22 10:04 Dose: 20 mg Pravastatin Sodium (Pravastatin 80 Mg Tab) 80 mg PO QHS [facility] Last Admin: 05/13/22 21:40 Dose: 80 mg Sodium Chloride (Sodium Chloride 0.9% 10 Ml Flush Syringe) 10 ml IV BID [facility] Last Admin: 05/13/22 10:05 Dose: 10 ml Sodium Chloride (Sodium Chloride 0.9% 10 Ml Flush Syringe) 10 ml IV PRN PRN PRN Reason: LINE FLUSH Triamterene/Hydrochlorothiazide (Triamter/Hctz 37.5-25 Mg Tab) 1 each PO DAILY [facility] Last Admin: 05/13/22 10:04 Dose: 1 each Vitamin E (Tocopherol 200 Unit Cap) 400 unit PO QDAY [facility] Last Admin: 05/13/22 11:32 Dose: 400 unit Zinc Sulfate (Zinc Sulfate 220 Mg Cap) 220 mg PO BID [facility] Last Admin: 05/13/22 21:37 Dose: 220 mg Review of Systems All systems: negative Physical Examination Vital signs: Vital Signs Pulse Ox 100 05/12/22 13:27 General appearance: no acute distress, alert Eyes: non-icteric ENT: oropharynx moist Neck: supple Effort: normal Ascultation: Bilateral: clear Cardiovascular: regular rate and rhythm (no mrg) Gastrointestinal: normoactive bowel sounds, soft, non-tender, non-distended Integumentary: normal Extremities: no cyanosis, no edema, pink and warm Musculoskeletal: no deformities normal mental status, non-focal exam, pupils equal and round, CN II-XII normal mood appropriate, affect normal Results - Laboratory Findings CBC and BMP: 05/14/22 05:13 05/14/22 05:13 ABG ABG pH 7.518 pH Units (7.350-7.450) H 05/12/22 14:00 ABG pCO2 24.9 mm Hg 05/12/22 14:00 ABG pO2 292.6 mm Hg (80.0-90.0) H 05/12/22 14:00 ABG O2 Saturation 99.5 % (95.0-99.0) H 05/12/22 14:00 PT/INR, D-dimer D-Dimer 549.41 ng/mlDDU (0-234) H 05/12/22 15:01 Abnormal lab findings: Abnormal Labs 05/12/22 05/12/22 05/12/22 14:00 15:01 15:01 WBC Hgb 11.5 L Hct 34.7 L Lymph % (Auto) [place] % (Auto) 10.2 H Lymph # (Auto) 1.1 L Seg Neutrophils % D-Dimer ABG pH 7.518 H ABG pO2 292.6 H ABG HCO3 19.8 L ABG O2 Saturation 99.5 H ABG Hemoglobin 11.9 L Glucose 109 H POC Glucose Total Protein 5.8 L Albumin 3.8 L 05/12/22 05/13/22 05/13/22 15:01 04:36 04:36 WBC 4.1 L Hgb Hct Lymph % (Auto) 12.6 L [place] % (Auto) Lymph # (Auto) 0.5 L Seg Neutrophils % 84.5 H D-Dimer 549.41 H ABG pH ABG pO2 ABG HCO3 ABG O2 Saturation ABG Hemoglobin Glucose 199 H POC Glucose Total Protein Albumin 05/13/22 05/13/22 05/13/22 11:33 16:35 21:46 WBC Hgb Hct Lymph % (Auto) [place] % (Auto) Lymph # (Auto) Seg Neutrophils % D-Dimer ABG pH ABG pO2 ABG HCO3 ABG O2 Saturation ABG Hemoglobin Glucose POC Glucose 297 H 309 H 238 H Total Protein Albumin - Diagnostic Findings Chest x-ray: report reviewed, image reviewed CT scan - chest: report reviewed, image reviewed Assessment and Plan Imp: 1. Covid-19 infection 2. Centrilobular emphysema on CT chest -> likely COPD exac. 3. Acute respiratory failure, hypoxia 4. CAD s/p CABG Rec: 1. Would complete a course of empiric ABX and PO steroids at d/c, and have him f/u in our office for PFTs given presence of emphysema on CT chest 2. Can go home in AM pulm-[place] Plan of care reviewed w/ patient, he understands/agrees Thanks kindly for the consult.
[2022-05-14] MEDS: methylPREDNISolone Sod Succinate 40 MG/1 ML INJ IV SCH ×2 (00:41→09:44)
[2022-05-14 05:45] LABS: Hematocrit 34.4 % (35.5-45.6); Hemoglobin 11.8 gm/dl (11.8-15.2); Mean Corpuscular HGB Conc 34 % (32-34); Mean Corpuscular Volume 92 fl (84-94); Platelet Count 144 K/mm3 (140-440); Red Blood Count 3.75 M/mm3 (3.65-5.03); Red Cell Distribution Width 14.3 % (13.2-15.2)
[2022-05-14 06:08] LABS: BUN/Creatinine Ratio 29; Blood Urea Nitrogen 29 mg/dL (9-20); Calcium 8.6 mg/dL (8.4-10.2); Hemolysis Index 3
[2022-05-14 06:20] LABS: C-Reactive Protein < 0.30 mg/dL (0.00-1.30)
[2022-05-14 06:33] VITALS: BP 114/45
--- NOTE | 2022-05-14 09:31 | Discharge Summary ---
Providers - Providers Date of Admission: 05/12/22 19:45 Attending physician: MONTEZ WONG MD 05/13/22 11:06 Consult to Physician [CONS] Routine Comment: called office/ toro Consulting Provider: STEWART LANIER Physician Instructions: Reason For Exam: Acute Respiratory Failure, Recent COVID-19 Primary care physician: MARBLE CARVER Hospitalization Reason for admission: Shortness of breath Condition: Stable Hospital course: This is a 81-year-old male with known past medical history of vascular dementia, cerebral atherosclerosis, GERD, HLD, HTN, OA, [place], CAD s/p CABG, DVT not on therapeutic anticoagulation, and recent Coronavirus Infection 2 weeks ago admitted for acute hypoxic respiratory failure requiring continuous Bipap Hospital Course to Date: 05/13: Respirtaory status imporved, stable on 2L NC this am. No respiratory distress noted. COVID PCR came back negative, imagings reviewed possible pneumonia vs chronic interstitial disease. Continue current IV Abx and IV steroids for now, Pulmonary consulted. Hyperglycemic this am, patient on IV steroids, low SSI initiated. Patient is stable for transfer to the floor. 05/14: Patient seen and examined today doing well. He is off oxygen on home O2 evaluation satting 96% on room air. His D-dimer however did go up some he did have a history of DVT he is unable to give me much information his son is also unable to give me any information as a result of Doppler of the lower extremity was ordered. Pending the results patient could be discharged on oral anticoagulation. I recommended an outpatient follow-up with his primary care physician for further management. His blood sugar was quite elevated no diagnosis of diabetes mellitus in the past. He was on steroids and I am not sure if this was the inciting factor also result I recommended an outpatient evaluation with his primary care doctor to include a hemoglobin A1c. I have also started him on metformin in the meantime. Lower extremity Doppler negative for DVT Assessment and Plan #Acute Hypoxic Respiratory Failure #Possible LLL Pneumonia vs Chronic Interstitial Disease #Recent COVID-19 Infection - Presented in respiratory distress and hypoxia required continuous Bipap - Imagings reviewed possible pneumonia vs chronic interstitial disease, see report for detail - COVID PCR negative, CRP and procal pending - Respiratory status improved, off Bipap. Stable on 2L NC today - Continue current IV abx and IV abx for now - Pulmonary consulted - Continue O2 supplementation and wean as tolerated - Continue SPO2 monitoring for SPO2 goal above 92% #Hypertension #Hyperlipidemia - BP stable, continue medical management. - Resume home antihypertensive and statin - Continue blood pressure monitor per protocol - Maintain SBP greater than 160 #Vascular Dementia - Currently fully AAO - Continue supportive measures - Verbal prompting, verbal redirection - Avoid benzodiazepine to reduce the possibility of delirium - PRN Analgesia for pain control - Maintenance of sleep-wake cycle #GERD (Gastroesophageal Reflux Disease) - continue medical management. - PPI- Protonix #Osteoarthritis - continue medical management. - Home meds resumed #Hyperglycemia - Per patient no previous history of diabetes - Now on IV steroids - BG check and SSI initiated - While critically ill target blood glucose of 140-180 #Advance Care Planning - Disease education data, care plan, diagnoses, and prognosis were discussed with patient and his son at the bedside. They acknowledged understanding and agreement with care plan. Patient is full code. #Preventative Health Care - Patient and son counseled regarding home safety, risk factor reduction, outpatient follow-up with primary care physician for all age and risk factor appropriate screening tests. Patient seen and examined at the bedside. Fully AAO, on 2L NC, denied any pain nor any discomfort. No sighs of any respiratory distress noted. VSS Disposition: 01 HOME / SELF CARE / HOMELESS Final Discharge Diagnosis (Prints w/discharge instructions): Acute hypoxic respiratory failure Time spent for discharge: 35 mins Core Measure Documentation - Palliative Care Palliative Care/ Comfort Measures: Not Applicable - Core Measures Any of the following diagnoses?: none Exam - Physical Exam Narrative exam: VITAL SIGNS: Reviewed. GENERAL: The patient appears normally developed, Vital signs as documented. HEAD: No signs of head trauma. EYES: Pupils are equal. Extraocular motions intact. EARS: Hearing grossly intact. MOUTH: Oropharynx is normal. NECK: No adenopathy, no JVD. CHEST: Chest with clear breath sounds bilaterally. No wheezes, rales, or rhonchi. CARDIAC: Regular rate and rhythm. S1 and S2, without murmurs, gallops, or rubs. VASCULAR: No Edema. Peripheral pulses normal and equal in all extremities. ABDOMEN: Soft, non tender and non distended. No rebound or guarding, and no masses palpated. Bowel Sounds normal. MUSCULOSKELETAL: Good range of motion of all major joints. Extremities without clubbing, cyanosis or edema. NEUROLOGIC EXAM: Alert and oriented x 3 No focal sensory or strength deficits. Speech normal. Follows commands. PSYCHIATRIC: Mood normal. SKIN: detail exam as documented in skin assessment - Constitutional Vitals: Temp Pulse Resp BP Pulse Ox 97.5 F L 60 18 114/45 96 05/14/22 05:14 05/14/22 06:00 05/14/22 05:14 05/14/22 05:14 05/14/22 05:14 Plan Activity: advance as tolerated, fall precautions Diet: low fat Special Instructions: record daily weights, record daily BP diary Care Plan Goals: Discussed with the primary care physician to obtain a hemoglobin A1c and monitor for development of diabetes mellitus Follow up with: PRIMARY CAREMD [Primary Care Provider] - 3-5 Days CHELSEA PANDYA MD [Staff Physician] - 7 Days EUNICE SMALL MD [Staff Physician] - 7 Days CARLOS SMALL MD [Staff Physician] - 7 Days Prescriptions: Amoxicillin/K Clav Tab [Augmentin 875MG TAB] 1 tab PO Q12HR #20 tab predniSONE [Deltasone] 20 mg PO QDAY #5 tab metFORMIN [Glucophage] 500 mg PO BID #60 tab Zinc Sulfate 220 mg PO BID #60 capsule Other Discharge Orders: Glucometer (Amb) Location: None Selected Glucometer supplies[Amb] Location: None Selected
[2022-05-14] MEDS: ASPIRIN 325 MG TAB PO SCH (09:45)
[2022-05-14] MEDS: PANTOPRAZOLE 20 MG TAB PO SCH (09:45)
[2022-05-14] MEDS: ESCITALOPRAM 10 MG TAB PO SCH (09:45)
[2022-05-14] MEDS: AZITHROMYCIN 250 MG TAB PO SCH (09:45)
[2022-05-14] MEDS: LISINOPRIL 20 MG TAB PO SCH (09:45)
[2022-05-14] MEDS: CHOLECALCIFEROL (VIT D3) 1000 UNIT (25 mcg) TAB PO SCH (09:45)
[2022-05-14] MEDS: CELECOXIB 200 MG CAP PO SCH (09:45)
[2022-05-14] MEDS: ASCORBIC ACID 500 MG TAB PO SCH (09:46)
[2022-05-14] MEDS: GABAPENTIN 400 MG CAP PO SCH (09:46)
[2022-05-14] MEDS: HEPARIN 5,000 UNIT/1 ML VIAL SUB-Q SCH (09:47)
[2022-05-14] MEDS: ZINC SULFATE 220 MG CAP PO SCH (09:47)
[2022-05-14] MEDS: INSULIN LISPRO 100 UNIT/ML SUB-Q SCH ×2 (09:47→12:13)
[2022-05-14] MEDS: TOCOPHEROL 200 UNIT CAP PO SCH (10:51)
[2022-05-14] MEDS: TRIAMTER/HCTZ 37.5-25 MG TAB PO SCH (10:52)
--- NOTE | 2022-05-14 13:05 | Vascular Lab Report ---
DUPLEX DOPPLER LOWER EXTREMITY VEINS, BILATERAL INDICATION / CLINICAL INFORMATION: Long Covid, hypertension, dementia, hyperlipidemia TECHNIQUE: Duplex doppler imaging was performed through the veins of both lower extremities using emiliano ous compression and other maneuvers. COMPARISON: None available. FINDINGS: RIGHT COMMON FEMORAL VEIN: Negative. RIGHT FEMORAL VEIN: Negative. RIGHT POPLITEAL VEIN: Negative. RIGHT CALF VEINS: Negative. LEFT COMMON FEMORAL VEIN: Negative. LEFT FEMORAL VEIN: Negative. LEFT POPLITEAL VEIN: Negative. LEFT CALF VEINS: Negative. ADDITIONAL FINDINGS: None. IMPRESSION: 1. No sonographic evidence for DVT in either lower extremity. Scribed by: Vale Bañuelos RDMS, QUINN, GUANAKO Scribed: 05/14/2022 11:57 AM I have reviewed the images, agree with this report, and edited this report as needed. Signer Name: Robbie Sainz MD Signed: 05/14/2022 1:01 PM Workstation Name: [employer]
--- NOTE | 2022-05-14 14:06 | Electrocardiograph Report ---
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
== END 2022-05-14 14:37 | disposition home or self-care (01) | DRG 196 ==
LOC: ED 12:53 → IMCU 19:45 → 3A 05-13 21:20
PROVIDERS: ADMIT Internal Medicine; ATTEND Internal Medicine
PROC: 4A033R1 Measurement of Arterial Saturation, Peripheral, Percutaneous Approach (ICD-10-PCS; principal; 2022-05-12)
PROC: 5A09357 Assistance with Respiratory Ventilation, Less than 24 Consecutive Hours, Continuous Positive Airway Pressure (ICD-10-PCS; 2022-05-12)
DX: J84.9 Interstitial pulmonary disease, unspecified (principal); J96.01 Acute respiratory failure with hypoxia; Z20.822 Contact with and (suspected) exposure to COVID-19; F01.50 Vascular dementia, unspecified severity, without behavioral disturbance, psychotic disturbance, mood disturbance, and anxiety; K21.9 Gastro-esophageal reflux disease without esophagitis; I67.2 Cerebral atherosclerosis; I25.10 Atherosclerotic heart disease of native coronary artery without angina pectoris; I25.2 Old myocardial infarction; E78.00 Pure hypercholesterolemia, unspecified; M19.90 Unspecified osteoarthritis, unspecified site; E78.2 Mixed hyperlipidemia; R73.9 Hyperglycemia, unspecified; J43.2 Centrilobular emphysema; Z90.49 Acquired absence of other specified parts of digestive tract; Z87.891 Personal history of nicotine dependence; Z79.82 Long term (current) use of aspirin; Z95.1 Presence of aortocoronary bypass graft; Z79.899 Other long term (current) drug therapy; Z82.49 Family history of ischemic heart disease and other diseases of the circulatory system; Z86.16 Personal history of COVID-19; I10 Essential (primary) hypertension
CPT/HCPCS: 36415; 71045; 71275; 80048; 80053; 82728; 82803; 82962; 83615; 83880; 84145; 84484; 85025; 85027; 85379; 86140; 93005; 93970; 94760; G0378; Q9967; J0696; J1644; J1815; J2920; J2930; U0003